=== PATIENT | female | born 1975 | race Caucasian/White ===

== ENCOUNTER 2017-07-16 23:09 | Inpatient (IN) | payer OTHER ==
[~2017-07-16] VITALS: Ht 170.2 cm; Wt 105.5 kg
[2017-07-17] VITALS (7 sets, daily range): BP systolic 124–161; BP diastolic 77–93
[2017-07-17 00:36] LABS: BASOPHIL % 0.6 % (0-2); RED CELL DISTRIBUTION WIDTH 14.5 % (11.5-14.5)
[2017-07-17 00:38] LABS: PLATELET COUNT 456 x10^3mcL (130-400)
[2017-07-17 01:03] LABS: CALCIUM 9.5 mg/dL (8.5-10.1); CARBON DIOXIDE 26.3 mmol/L (21-32); CREATININE SERUM 1.1 mg/dL (0.6-1.0); FREE T4 1.02 ng/dL (0.76-1.46); MAGNESIUM 1.6 mg/dL (1.8-2.4)
[2017-07-17 01:09] LABS: POTASSIUM SERUM 1.8 mmol/L (3.5-5.1)
[2017-07-17] MEDS ORDERED: KLOR-CON M2020 MEQ PO (02:01)
[2017-07-17] MEDS ORDERED: COZAAR100 MG PO (02:01)
[2017-07-17 02:36] LABS: T3 TOTAL 0.87 ng/mL
[2017-07-17 02:37] LABS: FREE T4 1.05 ng/dL (0.76-1.46); FREE THYROXINE INDEX 3.2 ug/dL (1.4-4.5)
[2017-07-17 06:39] LABS: CALCIUM 8.5 mg/dL (8.5-10.1); CARBON DIOXIDE 28.2 mmol/L (21-32); CHLORIDE SERUM 105 mmol/L (98-107); CREATININE SERUM 0.8 mg/dL (0.6-1.0); GFR1 > 60 mL/min; GLUCOSE SERUM 171 mg/dL (74-106); PHOSPHOROUS 1.6 mg/dL (2.5-4.9); SODIUM SERUM 142 mmol/L (136-145)
[2017-07-17 06:42] LABS: POTASSIUM SERUM 2.8 mmol/L (3.5-5.1)
[2017-07-17 06:52] LABS: microscopic required? NO
[2017-07-17 07:28] LABS: UA SPECIFIC GRAVITY 1.015 (1.005-1.035); urine erythrocyte NEGATIVE (NEGATIVE)
[2017-07-17 07:39] LABS: AMPHETAMINE QUAL UR NONE DETECTED (NEG <=1000)
[2017-07-17 19:57] LABS: CARBON DIOXIDE 32.3 mmol/L (21-32); CHLORIDE SERUM 108 mmol/L (98-107); CREATININE SERUM 0.7 mg/dL (0.6-1.0); GFR1 > 60 mL/min; GLUCOSE SERUM 184 mg/dL (74-106); SODIUM SERUM 145 mmol/L (136-145)
[2017-07-17 20:00] LABS: POTASSIUM SERUM 2.7 mmol/L (3.5-5.1)
[2017-07-18 06:24] VITALS: BP 141/97
[2017-07-18 06:28] VITALS: BP 142/81
[2017-07-18 07:24] LABS: CALCIUM 7.6 mg/dL (8.5-10.1); CARBON DIOXIDE 30.5 mmol/L (21-32); CHLORIDE SERUM 106 mmol/L (98-107); CREATININE SERUM 0.7 mg/dL (0.6-1.0); GFR1 > 60 mL/min; GLUCOSE SERUM 98 mg/dL (74-106); MAGNESIUM 1.7 mg/dL (1.8-2.4); PHOSPHOROUS 3.1 mg/dL (2.5-4.9); SODIUM SERUM 145 mmol/L (136-145)
[2017-07-18 07:26] LABS: POTASSIUM SERUM 2.9 mmol/L (3.5-5.1)
[2017-07-18 07:35] LABS: BASOPHIL % 0.3 % (0-2); PLATELET COUNT 366 x10^3mcL (130-400)
[2017-07-18 07:37] LABS: RED CELL DISTRIBUTION WIDTH 15.1 % (11.5-14.5)
[2017-07-18 10:38] VITALS: BP 150/84
[2017-07-18 14:37] VITALS: BP 139/76
[2017-07-18 18:11] VITALS: BP 154/85
[2017-07-18 20:10] LABS: CARBON DIOXIDE 28.3 mmol/L (21-32); CHLORIDE SERUM 105 mmol/L (98-107); CREATININE SERUM 0.7 mg/dL (0.6-1.0); GFR1 > 60 mL/min; GLUCOSE SERUM 150 mg/dL (74-106); SODIUM SERUM 142 mmol/L (136-145)
[2017-07-18 20:47] VITALS: BP 151/86
[2017-07-19 05:23] VITALS: BP 137/81
[2017-07-19 06:22] LABS: BASOPHIL % 0.3 % (0-2); PLATELET COUNT 396 x10^3mcL (130-400); RED CELL DISTRIBUTION WIDTH 14.2 % (11.5-14.5)
[2017-07-19 06:28] LABS: CALCIUM 7.6 mg/dL (8.5-10.1); CARBON DIOXIDE 31.5 mmol/L (21-32); CHLORIDE SERUM 104 mmol/L (98-107); CREATININE SERUM 0.7 mg/dL (0.6-1.0); GFR1 > 60 mL/min; GLUCOSE SERUM 97 mg/dL (74-106); SODIUM SERUM 143 mmol/L (136-145)
[2017-07-19 06:50] LABS: POTASSIUM SERUM 2.9 mmol/L (3.5-5.1)
[2017-07-19 10:05] VITALS: BP 145/75
[2017-07-19 14:43] VITALS: BP 143/77
[2017-07-19 17:12] LABS: CALCIUM 8.4 mg/dL (8.5-10.1); CARBON DIOXIDE 32.5 mmol/L (21-32); CHLORIDE SERUM 104 mmol/L (98-107); CREATININE SERUM 0.7 mg/dL (0.6-1.0); GFR1 > 60 mL/min; GLUCOSE SERUM 115 mg/dL (74-106); POTASSIUM SERUM 3.3 mmol/L (3.5-5.1); SODIUM SERUM 141 mmol/L (136-145)
[2017-07-19 17:54] VITALS: BP 153/95
[2017-07-19 18:00] VITALS: BP 153/95
[2017-07-19] MEDS ORDERED: DIOVAN160 MG PO (18:04)
== END 2017-07-19 19:23 | disposition home or self-care (01) | DRG 425 ==
LOC: ED 23:09 → DU 07-17 01:39
PROVIDERS: Emergency Medicine; ADMIT Family Medicine
DX: E87.6 Hypokalemia (principal); N17.0 Acute kidney failure with tubular necrosis; E83.42 Hypomagnesemia; E83.39 Other disorders of phosphorus metabolism; E89.0 Postprocedural hypothyroidism; I10 Essential (primary) hypertension; Z68.35 Body mass index [BMI] 35.0-35.9, adult; M79.1 Myalgia
CPT/HCPCS: 84439; J1170; J3475; J3480; J7030

== ENCOUNTER 2018-04-26 22:20 | Emergency (ER) | payer OTHER ==
[~2018-04-26] VITALS: Ht 170.2 cm; Wt 101.6 kg
[~2018-04-26 22:20] MED LIST: COZAAR100 MG PO; DIOVAN160 MG PO; KLOR-CON M2020 MEQ PO
[2018-04-26 22:28] VITALS: Ht 170.2 cm; Wt 101.6 kg
[2018-04-27 00:38] LABS: CALCIUM 9.4 mg/dL (8.5-10.1); CARBON DIOXIDE 26.1 mmol/L (21-32); CHLORIDE SERUM 101 mmol/L (98-107); GFR1 > 60 mL/min; GLUCOSE SERUM 141 mg/dL (74-106); POTASSIUM SERUM 3.9 mmol/L (3.5-5.1); SODIUM SERUM 138 mmol/L (136-145)
[2018-04-27 00:41] LABS: PHOSPHOROUS 4.4 mg/dL (2.5-4.9)
[2018-04-27 01:20] VITALS: BP 120/70
== END 2018-04-27 01:20 | disposition home or self-care (01) ==
LOC: ED 22:20
PROVIDERS: Emergency Medicine
DX: M79.1 Myalgia (principal); I10 Essential (primary) hypertension; E03.9 Hypothyroidism, unspecified; Z90.710 Acquired absence of both cervix and uterus
CPT/HCPCS: J1885; J7030